=== PATIENT | female | born 2005 | race Asian ===

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

== ENCOUNTER 2024-04-18 19:28 | Emergency (ER) | payer OTHER ==
[~2024-04-18] VITALS: Ht 147.3 cm; Wt 58.8 kg
[~2024-04-18 19:28] MED LIST changes: +ACET32TAB PO; -DOXYCYCLINE HYCLATE 100MG TABLET PO ONE; +IBUP1TAB7 PO; +OXYC-517 PO; -UNRESOLVED CLARIFICATION ENTRY XX SCH
[2024-04-18 22:19] VITALS: BP 110/69; TEMP 97.8; O2SAT 96
[2024-04-18] MEDS ORDERED: MAGICMW SSP (23:48)
[2024-04-18] MEDS: MAGIC MOUTHWASH 5ML ORAL SYRINGE SS ONE (23:50)
== END 2024-04-19 01:21 | disposition home or self-care (01) ==
LOC: M ED 19:28
DX: J35.1 Hypertrophy of tonsils (principal)

== ENCOUNTER → 2024-08-14 | Day surgery (SDC) | payer OTHER ==
[~2024-08-14] VITALS: Ht 147.3 cm; Wt 57.2 kg
[~2024-08-14] MED LIST changes: +LIDOCAINE 2% 100MG/5ML SDV (FOR ANES.) As Ordered ONE; +MAGICMW SSP; +MIDAZOLAM INJ 2MG/2ML VIAL As Ordered ONE; +NS (Normal Saline) 0.9% 1,000 ML IV SCH; +ONDANSETRON 4MG 2ML VIAL As Ordered ONE; +ROCURONIUM BROMIDE 50MG/5ML VIAL As Ordered ONE; +SUGAMMADEX SODIUM 500 MG/5 ML VIAL (BRIDION) As Ordered ONE; +fentaNYL 100 MCG/2 ML INJECTION As Ordered ONE; +propofoL 200 MG/20 ML VIAL As Ordered ONE
[2024-08-14 08:11] VITALS: BP 114/64; TEMP 97.9; O2SAT 99
== END | disposition home or self-care (01) ==
LOC: M SDC 06:39
PROVIDERS: ATTEND Otolaryngology
DX: J35.1 Hypertrophy of tonsils (principal); Z53.09 Procedure and treatment not carried out because of other contraindication

== ENCOUNTER 2024-11-26 06:47 | Emergency (ER) | payer OTHER ==
[~2024-11-26] VITALS: Ht 147.3 cm; Wt 56.3 kg
[~2024-11-26 06:47] MED LIST changes: -LIDOCAINE 2% 100MG/5ML SDV (FOR ANES.) As Ordered ONE; -MIDAZOLAM INJ 2MG/2ML VIAL As Ordered ONE; -NS (Normal Saline) 0.9% 1,000 ML IV SCH; -ONDANSETRON 4MG 2ML VIAL As Ordered ONE; -ROCURONIUM BROMIDE 50MG/5ML VIAL As Ordered ONE; -SUGAMMADEX SODIUM 500 MG/5 ML VIAL (BRIDION) As Ordered ONE; -fentaNYL 100 MCG/2 ML INJECTION As Ordered ONE; -propofoL 200 MG/20 ML VIAL As Ordered ONE
[2024-11-26 07:53] LABS: BASO # 0.1 10^3/uL (0.0-0.2); BASO % 1.1 % (0.0-1.0); EOS # 0.1 10^3/uL (0.0-0.5); EOS % 1.9 % (0.0-3.0); HEMATOCRIT 39.9 % (36.0-47.0); HEMOGLOBIN 12.8 g/dl (12.0-15.5); LYMPH # 2.4 10^3/uL (1.5-5.0); LYMPH % 38.1 % (24.0-44.0); MEAN CORPUSCULAR HGB CONC 32.1 g/dl (32.0-36.5); MEAN CORPUSCULAR VOLUME 80.9 fl (80.0-96.0); MONO # 0.5 10^3/uL (0.0-0.8); MONO % 7.7 % (2.0-8.0); NEUTROPHILS # 3.2 10^3/uL (1.5-8.5); PLATELET COUNT, AUTOMATED 343 10^3/uL (150-450); RED BLOOD COUNT 4.93 10^6/uL (4.00-5.40); WHITE BLOOD COUNT 6.2 10^3/uL (4.0-10.0)
[2024-11-26 08:35] LABS: MONO SCRN NEGATIVE (NEGATIVE)
[2024-11-26] MEDS ORDERED: CEPH500C PO (09:06)
[2024-11-26 09:10] VITALS: BP 105/74; TEMP 98; O2SAT 98
== END 2024-11-26 09:12 | disposition home or self-care (01) ==
LOC: M ED 06:47
DX: J03.90 Acute tonsillitis, unspecified (principal); Z79.2 Long term (current) use of antibiotics